=== PATIENT | male | born 1995 | race American Indian/Alaskan Native ===

== ENCOUNTER 2021-06-25 11:16 | Emergency (ER) | payer SELFPAY ==
[2021-06-25 12:22] VITALS: BP 105/58
--- NOTE | 2021-06-25 12:53 | Emergency Department Report ---
ED General Adult HPI - General Chief complaint: Upper Respiratory Infection Stated complaint: FEVER/CONGESTED Time Seen by Provider: 06/25/21 12:26 Source: patient Mode of arrival: Ambulatory Limitations: No Limitations - History of Present Illness Initial comments: 25-year-old -[place] male patient presents with complaints of nasal congestion and cough x3 days. He denies any chest pain, shortness of breath, loss of taste or smell, nausea/vomiting/diarrhea, or fever/chills/sweats. He reports a history of asthma and states he is currently out of his rescue inhaler. Patient states his symptoms did improve with a mixture of honey and apple cider vinegar. He denies any recent known sick contacts or hemoptysis. He states his cough is dry without sputum production - Related Data Previous Rx's Medication Instructions Recorded Last Taken Type Acetaminophen/Codeine [Tylenol #3] 1 tab PO Q6H PRN #20 tab 01/07/14 Unknown Rx Amoxicillin/K Clav Tab [Augmentin 1 tab PO BID #20 tablet 01/07/14 Unknown Rx 875MG] Ibuprofen [Motrin] 600 mg PO Q8H PRN #60 tablet 01/07/14 Unknown Rx Loratadine (Nf) [Claritin] 10 mg PO DAILY #30 tablet 01/07/14 Unknown Rx predniSONE [Deltasone] 50 mg PO QDAY #5 tab 01/07/14 Unknown Rx Albuterol Mdi (or & Nicu Only) 2 puff IH QID PRN #8.5 gram 06/25/21 Unknown Rx [ProAir HFA Inhaler] Fluticasone [Flonase] 2 spray NS QDAY #1 bottle 06/25/21 Unknown Rx Levocetirizine Dihydrochloride 5 mg PO QHS 10 Days #10 tablet 06/25/21 Unknown Rx [Xyzal] predniSONE 10 mg PO BID 3 Days #6 tab 06/25/21 Unknown Rx Allergies Allergy/AdvReac Type Severity Reaction Status Date / Time No Known Allergies Allergy Unverified 01/07/14 17:39 ED Review of Systems ROS: Stated complaint: FEVER/CONGESTED Other details as noted in HPI Constitutional: denies: chills, diaphoresis, fever, malaise, weakness ENT: congestion. denies: throat pain Respiratory: cough. denies: shortness of breath Cardiovascular: denies: chest pain Gastrointestinal: denies: abdominal pain, nausea, vomiting, diarrhea Neurological: denies: headache Hematological/Lymphatic: denies: swollen glands ED Past Medical Hx - Past Medical History Previous Medical History?: Yes Hx Asthma: Yes - Surgical History Past Surgical History?: No - Social History Smoking Status: Never Smoker Substance Use Type: None - Medications Home Medications: Home Medications Medication Instructions Recorded Confirmed Last Taken Type Acetaminophen/Codeine [Tylenol #3] 1 tab PO Q6H PRN #20 tab 01/07/14 Unknown Rx Amoxicillin/K Clav Tab [Augmentin 1 tab PO BID #20 tablet 01/07/14 Unknown Rx 875MG] Ibuprofen [Motrin] 600 mg PO Q8H PRN #60 tablet 01/07/14 Unknown Rx Loratadine (Nf) [Claritin] 10 mg PO DAILY #30 tablet 01/07/14 Unknown Rx predniSONE [Deltasone] 50 mg PO QDAY #5 tab 01/07/14 Unknown Rx Albuterol Mdi (or & Nicu Only) 2 puff IH QID PRN #8.5 gram 06/25/21 Unknown Rx [ProAir HFA Inhaler] Fluticasone [Flonase] 2 spray NS QDAY #1 bottle 06/25/21 Unknown Rx Levocetirizine Dihydrochloride 5 mg PO QHS 10 Days #10 tablet 06/25/21 Unknown Rx [Xyzal] predniSONE 10 mg PO BID 3 Days #6 tab 06/25/21 Unknown Rx ED Physical Exam - General Limitations: No Limitations General appearance: alert, in no apparent distress - Head Head exam: Present: atraumatic, normocephalic - Eye Eye exam: Present: normal appearance. Absent: scleral icterus - ENT ENT exam: Present: normal exam. Absent: other (No sinus tenderness to palpation noted) - Neck Neck exam: Present: normal inspection - Respiratory Respiratory exam: Present: normal lung sounds bilaterally. Absent: respiratory distress - Cardiovascular Cardiovascular Exam: Present: regular rate, normal rhythm - Neurological Exam Neurological exam: Present: alert, oriented X3 - Psychiatric Psychiatric exam: Present: normal affect, normal mood - Skin Skin exam: Present: warm, dry, intact, normal color. Absent: rash ED Course Vital Signs 06/25/21 12:17 Temperature 98.7 F Pulse Rate 96 H Respiratory 16 Rate Blood Pressure 105/58 [Left] O2 Sat by Pulse 98 Oximetry ED Medical Decision Making - Medical Decision Making 25-year-old -[place] male patient presents with complaints of nasal congestion and cough x3 days. He denies any chest pain, shortness of breath, loss of taste or smell, nausea/vomiting/diarrhea, or fever/chills/sweats. He reports a history of asthma and states he is currently out of his rescue inhaler. Patient states his symptoms did improve with a mixture of honey and apple cider vinegar. He denies any recent known sick contacts or hemoptysis. He states his cough is dry without sputum production Lungs are clear to auscultation on exam bilaterally. No sinus tenderness to palpation or erythema/exudate of the throat noted on exam. Patient is well- appearing, his vitals are normal, he is stable for discharge home. We will treat for viral URI conservatively. Recommend patient follows up with his pain PCP within 3 to 5 days. Discussed presumptive diagnosis, treatment plan, and signs and symptoms that should prompt immediate return to the emergency department in detail patient verbalizes understanding. Critical care attestation.: If time is entered above; I have spent that time in minutes in the direct care of this critically ill patient, excluding procedure time. ED Disposition Clinical Impression: URI with cough and congestion Disposition: 01 HOME / SELF CARE / HOMELESS Is pt being admited?: No Condition: Stable Instructions: Viral Respiratory Infection Additional Instructions: Please get outpatient testing for COVID-19 within the next 24 to 48 hours Prescriptions: Levocetirizine Dihydrochloride [Xyzal] 5 mg PO QHS 10 Days #10 tablet Fluticasone [Flonase] 2 spray NS QDAY #1 bottle predniSONE 10 mg PO BID 3 Days #6 tab Albuterol Mdi (or & Nicu Only) [ProAir HFA Inhaler] 2 puff IH QID PRN #8.5 gram PRN Reason: Shortness Of Breath Referrals: [facility] [Provider Group] - 3-5 Days
== END 2021-06-25 13:41 | disposition home or self-care (01) ==
LOC: ED 11:16
DX: J06.9 Acute upper respiratory infection, unspecified (principal); R05 Cough; R09.81 Nasal congestion; J45.909 Unspecified asthma, uncomplicated
CPT/HCPCS: 99282

== ENCOUNTER 2021-07-09 15:08 | Emergency (ER) | payer SELFPAY ==
[2021-07-09 15:33] VITALS: BP 122/79
--- NOTE | 2021-07-09 15:57 | Emergency Department Report ---
ED General Adult HPI - General Chief complaint: Dyspnea/Respdistress Stated complaint: ASTHMA Source: patient Mode of arrival: Ambulatory Limitations: No Limitations - History of Present Illness Initial comments: 25-year-old -[place] male patient with history of asthma presents with complaints of wheezing and coughing x2 days. Patient was seen here in the ED 2 weeks ago with similar symptoms and states his symptoms have worsened. He reports that he filled his prescribed medications a few days ago which included prednisone, and inhaler, and Flonase. He denies any hemoptysis, shortness of breath, fever/chills/sweats, loss of taste or smell, or recent known sick contacts. Patient states inhaler is not helping with his wheezing. No other past medical history per patient. He also denies leg pain/swelling, recent long travel, or history of DVT/PE - Related Data Previous Rx's Medication Instructions Recorded Last Taken Type Acetaminophen/Codeine [Tylenol #3] 1 tab PO Q6H PRN #20 tab 01/07/14 Unknown Rx Amoxicillin/K Clav Tab [Augmentin 1 tab PO BID #20 tablet 01/07/14 Unknown Rx 875MG] Ibuprofen [Motrin] 600 mg PO Q8H PRN #60 tablet 01/07/14 Unknown Rx Loratadine (Nf) [Claritin] 10 mg PO DAILY #30 tablet 01/07/14 Unknown Rx predniSONE [Deltasone] 50 mg PO QDAY #5 tab 01/07/14 Unknown Rx Albuterol Mdi (or & Nicu Only) 2 puff IH QID PRN #8.5 gram 06/25/21 Unknown Rx [ProAir HFA Inhaler] Fluticasone [Flonase] 2 spray NS QDAY #1 bottle 06/25/21 Unknown Rx Levocetirizine Dihydrochloride 5 mg PO QHS 10 Days #10 tablet 06/25/21 Unknown Rx [Xyzal] predniSONE 10 mg PO BID 3 Days #6 tab 06/25/21 Unknown Rx Azithromycin [Zithromax Z-HILARY] 0 mg PO DAILY #6 tab 07/09/21 Unknown Rx Allergies Allergy/AdvReac Type Severity Reaction Status Date / Time No Known Allergies Allergy Unverified 01/07/14 17:39 ED Review of Systems ROS: Stated complaint: ASTHMA Other details as noted in HPI Constitutional: denies: chills, diaphoresis, fever, malaise, weakness ENT: denies: congestion Respiratory: cough. denies: shortness of breath Cardiovascular: denies: chest pain Skin: denies: rash Neurological: denies: numbness, paresthesias ED Past Medical Hx - Past Medical History Previous Medical History?: Yes Hx Asthma: Yes - Surgical History Past Surgical History?: No - Social History Smoking Status: Never Smoker Substance Use Type: None - Medications Home Medications: Home Medications Medication Instructions Recorded Confirmed Last Taken Type Acetaminophen/Codeine [Tylenol #3] 1 tab PO Q6H PRN #20 tab 01/07/14 Unknown Rx Amoxicillin/K Clav Tab [Augmentin 1 tab PO BID #20 tablet 01/07/14 Unknown Rx 875MG] Ibuprofen [Motrin] 600 mg PO Q8H PRN #60 tablet 01/07/14 Unknown Rx Loratadine (Nf) [Claritin] 10 mg PO DAILY #30 tablet 01/07/14 Unknown Rx predniSONE [Deltasone] 50 mg PO QDAY #5 tab 01/07/14 Unknown Rx Albuterol Mdi (or & Nicu Only) 2 puff IH QID PRN #8.5 gram 06/25/21 Unknown Rx [ProAir HFA Inhaler] Fluticasone [Flonase] 2 spray NS QDAY #1 bottle 06/25/21 Unknown Rx Levocetirizine Dihydrochloride 5 mg PO QHS 10 Days #10 tablet 06/25/21 Unknown Rx [Xyzal] predniSONE 10 mg PO BID 3 Days #6 tab 06/25/21 Unknown Rx Azithromycin [Zithromax Z-HILARY] 0 mg PO DAILY #6 tab 07/09/21 Unknown Rx ED Physical Exam - General Limitations: No Limitations General appearance: alert, in no apparent distress - Head Head exam: Present: atraumatic, normocephalic - Eye Eye exam: Present: normal appearance. Absent: scleral icterus - Respiratory Respiratory exam: Present: wheezes, rhonchi. Absent: respiratory distress - Cardiovascular Cardiovascular Exam: Present: regular rate, normal rhythm - Neurological Exam Neurological exam: Present: alert, oriented X3 - Psychiatric Psychiatric exam: Present: normal affect, normal mood - Skin Skin exam: Present: warm, dry, intact, normal color. Absent: rash ED Course Vital Signs 07/09/21 15:32 Temperature 98.6 F Pulse Rate 90 Respiratory 16 Rate Blood Pressure 122/79 O2 Sat by Pulse 97 Oximetry ED Medical Decision Making - Radiology Data Radiology results: report reviewed CHEST 2 VIEWS INDICATION: wheezing, ronchi. COMPARISON: None. FINDINGS: Support devices: None. Heart: Within normal limits. Lungs/Pleura: No acute air space or interstitial disease. No significant ple ural effusion. IMPRESSION: No acute findings. - Medical Decision Making 25-year-old -[place] male patient with history of asthma presents with complaints of wheezing and coughing x2 days. Patient was seen here in the ED 2 weeks ago with similar symptoms and states his symptoms have worsened. He reports that he filled his prescribed medications a few days ago which included prednisone, and inhaler, and Flonase. He denies any hemoptysis, shortness of breath, fever/chills/sweats, loss of taste or smell, or recent known sick contacts. Patient states inhaler is not helping with his wheezing. No other past medical history per patient. He also denies leg pain/swelling, recent long travel, or history of DVT/PE We will treat patient for acute bacterial bronchitis given worsening of symptoms with noted wheezing and rhonchi on exam which were not present during his last visit on 06/25/2021. Vitals are normal, patient is well-appearing, he is stable for discharge home. Discussed need for follow-up with PCP in 3 to 5 days and strict return precautions in detail with patient verbalized understanding. Critical care attestation.: If time is entered above; I have spent that time in minutes in the direct care of this critically ill patient, excluding procedure time. ED Disposition Clinical Impression: Acute bacterial bronchitis Disposition: HOME / SELF CARE / HOMELESS Is pt being admited?: No Condition: Stable Instructions: Acute Bronchitis, Adult, Acute Bronchitis (ED) Prescriptions: Azithromycin [Zithromax Z-HILARY] 0 mg PO DAILY #6 tab Referrals: [facility] [Provider Group] - 3-5 Days
--- NOTE | 2021-07-09 16:19 | XRay Report ---
CHEST 2 VIEWS INDICATION: wheezing, ronchi. COMPARISON: None. FINDINGS: Support devices: None. Heart: Within normal limits. Lungs/Pleura: No acute air space or interstitial disease. No significant pleural effusion. IMPRESSION: No acute findings. Signer Name: Jani Ware MD Signed: 07/09/2021 4:15 PM Workstation Name: [id number]
== END 2021-07-09 17:01 | disposition home or self-care (01) ==
LOC: ED 15:08
DX: J20.9 Acute bronchitis, unspecified (principal); J45.909 Unspecified asthma, uncomplicated
CPT/HCPCS: 71046; 99283

== ENCOUNTER 2021-10-04 13:15 | Emergency (ER) | payer SELFPAY ==
[2021-10-04] MEDS ORDERED: ACETAMINOPHEN 500 MG TAB PO STA (15:38)
--- NOTE | 2021-10-04 16:12 | XRay Report ---
XR chest routine 2V INDICATION / CLINICAL INFORMATION: cough, fever. COMPARISON: 07/09/2021 FINDINGS: SUPPORT DEVICES: None. HEART /PULMONARY VASCULATURE: No significant abnormality. LUNGS / PLEURA: No significant pulmonary or pleural abnormality. No pneumothorax. ADDITIONAL FINDINGS: No significant additional findings. IMPRESSION: 1. No acute findings. Signer Name: Rylan Vee MD Signed: 10/04/2021 4:08 PM Workstation Name: [id number]
--- NOTE | 2021-10-04 16:25 | Emergency Department Report ---
Minor Respiratory - HPI Chief Complaint: Fever Stated Complaint: FEELING SICK Time Seen by Provider: 10/04/21 16:22 Duration: 1 Day Minor Respiratory: Yes Rhinorrhea, Yes Able to Tolerate Fluids, Yes Cough, Yes Fever, No Sore Throat, No Hemoptysis, No Chest Pain, No Shortness of Breath Other History: 26-year-old -[place] male with a history of asthma presents to the emergency room complaining of fever body aches runny nose headache since yesterday. Patient is not vaccinated for Covid or flu. Patient reports a history of asthma. Has not been using his pump. Patient is taking nothing for his symptoms. ED Review of Systems ROS: Stated complaint: FEELING SICK Other details as noted in HPI Comment: All other systems reviewed and negative ED Past Medical Hx - Past Medical History Hx Asthma: Yes - Social History Smoking Status: Never Smoker Substance Use Type: None - Medications Home Medications: Home Medications Medication Instructions Recorded Confirmed Last Taken Type Acetaminophen/Codeine [Tylenol #3] 1 tab PO Q6H PRN #20 tab 01/07/14 Unknown Rx Amoxicillin/K Clav Tab [Augmentin 1 tab PO BID #20 tablet 01/07/14 Unknown Rx 875MG] Ibuprofen [Motrin] 600 mg PO Q8H PRN #60 tablet 01/07/14 Unknown Rx Loratadine (Nf) [Claritin] 10 mg PO DAILY #30 tablet 01/07/14 Unknown Rx predniSONE [Deltasone] 50 mg PO QDAY #5 tab 01/07/14 Unknown Rx Albuterol Mdi (or & Nicu Only) 2 puff IH QID PRN #8.5 gram 06/25/21 Unknown Rx [ProAir HFA Inhaler] Fluticasone [Flonase] 2 spray NS QDAY #1 bottle 06/25/21 Unknown Rx Levocetirizine Dihydrochloride 5 mg PO QHS 10 Days #10 tablet 06/25/21 Unknown Rx [Xyzal] predniSONE 10 mg PO BID 3 Days #6 tab 06/25/21 Unknown Rx Azithromycin [Zithromax Z-HILARY] 0 mg PO DAILY #6 tab 07/09/21 Unknown Rx Minor Respiratory Exam - Exam General: Vital signs noted. No distress. Alert and acting appropriately. HEENT: Yes Moist Mucous Membranes, No Pharyngeal Erythema, No Pharyngeal Exudates, No Rhinorrhea, No Conjuctival Injection, No Frontal Tenderness, No Maxillary Tenderness Ear: Neither TM Bulge, Neither TM Erythema, Neither EAC Pain, Neither EAC Discharge Neck: Yes Supple, No Adenopathy Lungs: Yes Good Air Exchange, No Wheezes, No Ronchi, No Stridor, No Cough, No Labored Respirations, No Retractions, No Use of Accessory Muscles, No Other Abnormal Lung Sounds Heart: Yes Regular, No Murmur Abdomen: Yes Normal Bowel Sounds, No Tenderness, No Peritoneal Signs Skin: No Rash, No Edema Neurologic: Alert and oriented, no deficits. Musculoskeletal: Unremarkable. ED Course Vital Signs 10/04/21 13:27 Temperature 101.2 F H Pulse Rate 106 H Respiratory 20 Rate Blood Pressure 111/73 O2 Sat by Pulse 100 Oximetry ED Medical Decision Making - Radiology Data Radiology results: report reviewed [address] [address] XRay Report Signed Patient: ALBINA PEREZ MR#: [id number] : 1995 Acct:[id number] Age/Sex: 26 / M ADM Date: 10/04/21 Loc: ED Attending Dr: Ordering Physician: JUANA NUNEZ Date of Service: 10/04/21 Procedure(s): XR chest routine 2V Accession Number(s): [id number] cc: JUANA NUNEZ Fluoro Time In Minutes: XR chest routine 2V INDICATION / CLINICAL INFORMATION: cough, fever. COMPARISON: 07/09/2021 FINDINGS: SUPPORT DEVICES: None. HEART /PULMONARY VASCULATURE: No significant abnormality. LUNGS / PLEURA: No significant pulmonary or pleural abnormality. No pneumothorax. ADDITIONAL FINDINGS: No significant additional findings. IMPRESSION: 1. No acute findings. Signer Name: Rylan Vee MD Signed: 10/04/2021 4:08 PM Workstation Name: [id number] - Medical Decision Making 26-year-old -[place] male with a history of asthma presents to the emergency room complaining of fever body aches runny nose headache since yesterday. Patient is not vaccinated for Covid or flu. Patient reports a history of asthma. Has not been using his pump. Patient is taking nothing for his symptoms. Acetaminophen for fever, chest x-ray was ordered. Chest x-ray is negative. Discussed with patient needs to increase his fluids Tylenol ibuprofen [id number] Robitussin recommend Covid testing. Critical care attestation.: If time is entered above; I have spent that time in minutes in the direct care of this critically ill patient, excluding procedure time. ED Disposition Clinical Impression: Suspected COVID-19 virus infection Disposition: HOME / SELF CARE / HOMELESS Is pt being admited?: No Does the pt Need Aspirin: No Condition: Stable Instructions: COVID-19: How to Protect Yourself and Others - [facility] Additional Instructions: Your symptoms appear most consistent with a nonspecific viral syndrome. However, given this current pandemic, COVID-19 is in the differential of possibilities. Despite your previous negative COVID-19 test, I do recommend repeat outpatient Covid 19 testing. In the meantime, isolate/quarantine yourself and stay away from anyone who is elderly, immunocompromised or chronically ill. You can use ibuprofen every 6-8 hours and Tylenol every 4-8 hours, using the dosing on the back of the bottle, as needed for any fever or body aches. Return to the emergency department with any worsening of your symptoms, development of chest pain or shortness of breath, or with any acute distress. Referrals: [facility] [Provider Group] - 3-5 Days Forms: Work/School Release Form(ED) Time of Disposition: 16:30
[2021-10-04 16:53] VITALS: BP 126/87
== END 2021-10-04 16:53 | disposition home or self-care (01) ==
LOC: ED 13:15
DX: R50.9 Fever, unspecified (principal); M79.18 Myalgia, other site; R51.9 Headache, unspecified; Z20.822 Contact with and (suspected) exposure to COVID-19; J45.909 Unspecified asthma, uncomplicated
CPT/HCPCS: 71046; 99283